=== PATIENT | male | born 1950 | race Caucasian/White ===

== ENCOUNTER 2017-03-06 03:42 | Emergency (ER) | payer MEDICARE, OTHER ==
[~2017-03-06] VITALS: Ht 175.3 cm; Wt 88.6 kg
[2017-03-06] MEDS ORDERED: ABAC1TAB3 PO (04:02)
[2017-03-06] MEDS ORDERED: BUSP10TA23 PO (04:05)
[2017-03-06] MEDS ORDERED: ASA3 PO (04:05)
[2017-03-06] MEDS ORDERED: ALPR0.25 PO (04:05)
[2017-03-06] MEDS ORDERED: CARB-101 PO (04:05)
[2017-03-06] MEDS ORDERED: ATOR20TA86 PO (04:05)
[2017-03-06] MEDS ORDERED: LINA145C PO (04:10)
[2017-03-06] MEDS ORDERED: DARU800T PO (04:10)
[2017-03-06] MEDS ORDERED: QUET25TA PO (04:10)
[2017-03-06] MEDS ORDERED: QUET100T PO (04:10)
[2017-03-06] MEDS ORDERED: FINA5TAB41 PO (04:10)
[2017-03-06] MEDS ORDERED: GABA-531 PO (04:10)
[2017-03-06] MEDS ORDERED: TRAZ-147 PO (04:10)
[2017-03-06] MEDS ORDERED: CELE100 PO (04:10)
[2017-03-06] MEDS ORDERED: DOXA2TAB PO (04:10)
[2017-03-06] MEDS ORDERED: RITO100T PO (04:10)
[2017-03-06] MEDS ORDERED: ESOM20CA31 PO (04:10)
[2017-03-06 04:19] LABS: BASOPHILS # (AUTO) 0.11 K/uL (0.00-0.20); BASOPHILS % (AUTO) 1.9 % (0.0-2.0); EOSINOPHILS # (AUTO) 0.06 K/uL (0.00-0.70); EOSINOPHILS % (AUTO) 0.95 % (1.0-6.0); HEMATOCRIT 40.2 % (41-53); HEMOGLOBIN 13.2 g/dL (13.5-17.5); LYMPHOCYTES # (AUTO) 1.5 K/uL (1.0-4.8); LYMPHOCYTES % (AUTO) 25.7 % (22.0-44.0); MEAN CORPUSCULAR HEMOGLOBIN 35.6 pg (26.0-34.0); MEAN CORPUSCULAR HGB CONC 32.9 G/dL (31.0-37.0); MEAN CORPUSCULAR VOLUME 108 fL (80-100); MONOCYTES # (AUTO) 0.5 K/uL (0.1-1.0); MONOCYTES % (AUTO) 8.5 % (2.0-9.0); NEUTROPHILS # (AUTO) 3.8 K/uL (1.8-7.7); PLATELET COUNT (AUTO) 145 K/uL (150-450); RED BLOOD CELL COUNT(AUTO) 3.72 MIL/uL (4.50-5.90); RED CELL DISTRIBUTION WIDTH 14.6 % (11.5-14.5)
[2017-03-06 04:26] LABS: ANION GAP 8 mmol/L (8-16); CALCIUM, TOTAL 8.8 mg/dL (8.8-10.5); CARBON DIOXIDE 28 mmol/L (22-29); CHLORIDE 106 mmol/L (98-107); GLOMERULAR FILTR. RATE CALC > 60 mL/min (>60); POTASSIUM 3.6 mmol/L (3.5-5.1); SODIUM SERUM 142 mmol/L (136-145); UREA NITROGEN, BLOOD 11 mg/dL (7-18)
[2017-03-06 04:33] LABS: ALANINE AMINOTRANSFERASE 50 U/L (12-78); ALBUMIN 3.4 g/dL (3.4-5.0); ASPARTATE AMINOTRANSFERASE 46 U/L (15-37); BILIRUBIN,TOTAL 0.8 mg/dL (0.1-1.0); TOTAL PROTEIN, SERUM 6.4 g/dL (6.4-8.2)
[2017-03-06] MEDS ORDERED: QUEtiapine FUMARATE 100 MG TABLET PO ONE (04:45)
[2017-03-06 06:25] VITALS: BP 146/79
== END 2017-03-06 06:36 | disposition home or self-care (01) ==
LOC: EMS 03:44
DX: G20 Parkinson's disease (principal); F02.80 Dementia in other diseases classified elsewhere, unspecified severity, without behavioral disturbance, psychotic disturbance, mood disturbance, and anxiety; F32.9 Major depressive disorder, single episode, unspecified; E78.00 Pure hypercholesterolemia, unspecified; F17.200 Nicotine dependence, unspecified, uncomplicated; Z79.82 Long term (current) use of aspirin; Z88.8 Allergy status to other drugs, medicaments and biological substances
CPT/HCPCS: 36415; 80053; 85025; 99285; G0480

== ENCOUNTER 2017-03-06 12:12 | Emergency (ER) | payer MEDICARE, OTHER ==
[~2017-03-06] VITALS: Ht 177.8 cm; Wt 68.2 kg
[~2017-03-06 12:12] MED LIST: ABAC1TAB3 PO; ALPR0.25 PO; ASA3 PO; ATOR20TA86 PO; BUSP10TA23 PO; CARB-101 PO; CELE100 PO; DARU800T PO; DOXA2TAB PO; ESOM20CA31 PO; FINA5TAB41 PO; GABA-531 PO; LINA145C PO; QUET100T PO; QUET25TA PO; RITO100T PO; TRAZ-147 PO
[2017-03-06 13:11] LABS: GLUCOSE,POINT OF CARE 86 MG/DL (70-110)
[2017-03-06 14:48] LABS: ADD UA MICROSCOPIC NO; APPEARANCE,URINE CLEAR (CLEAR); GLUCOSE, URINE (UA) NEGATIVE (NEGATIVE); KETONES,URINE 40 mg/dL (NEGATIVE); LEUKOCYTE ESTERASE ,URINE NEGATIVE (NEGATIVE); OCCULT BLOOD,URINE NEGATIVE (NEGATIVE); PROTEIN,URINE NEGATIVE (NEGATIVE)
[2017-03-06 16:21] LABS: BASOPHILS # (AUTO) 0.07 K/uL (0.00-0.20); BASOPHILS % (AUTO) 1.3 % (0.0-2.0); EOSINOPHILS # (AUTO) 0.07 K/uL (0.00-0.70); HEMATOCRIT 37.7 % (41-53); HEMOGLOBIN 12.8 g/dL (13.5-17.5); LYMPHOCYTES # (AUTO) 1.9 K/uL (1.0-4.8); LYMPHOCYTES % (AUTO) 33.4 % (22.0-44.0); MEAN CORPUSCULAR HEMOGLOBIN 35.8 pg (26.0-34.0); MEAN CORPUSCULAR HGB CONC 33.9 G/dL (31.0-37.0); MEAN CORPUSCULAR VOLUME 106 fL (80-100); MONOCYTES # (AUTO) 0.5 K/uL (0.1-1.0); NEUTROPHILS # (AUTO) 3.1 K/uL (1.8-7.7); PLATELET COUNT (AUTO) 137 K/uL (150-450); RED BLOOD CELL COUNT(AUTO) 3.57 MIL/uL (4.50-5.90); RED CELL DISTRIBUTION WIDTH 14.1 % (11.5-14.5); WHITE BLOOD COUNT (AUTO) 5.6 K/uL (4.5-11.0)
[2017-03-06 16:29] LABS: RBC MORPHOLOGY COMMENT ABNORMAL RBC MORPH
[2017-03-06] MEDS ORDERED: LORazepam 2 MG/ML VIAL IM ONE ×2 (16:30→21:15)
[2017-03-06 16:34] LABS: ANION GAP 11 mmol/L (8-16); CALCIUM, TOTAL 8.7 mg/dL (8.8-10.5); CARBON DIOXIDE 27 mmol/L (22-29); CHLORIDE 106 mmol/L (98-107); CREATININE 1.16 mg/dL (0.60-1.30); GLOMERULAR FILTR. RATE CALC > 60 mL/min (>60); POTASSIUM 3.8 mmol/L (3.5-5.1); SODIUM SERUM 144 mmol/L (136-145); UREA NITROGEN, BLOOD 12 mg/dL (7-18)
[2017-03-06 16:40] LABS: ALANINE AMINOTRANSFERASE 60 U/L (12-78); ALBUMIN 3.2 g/dL (3.4-5.0); ASPARTATE AMINOTRANSFERASE 61 U/L (15-37); BILIRUBIN,TOTAL 0.8 mg/dL (0.1-1.0); TOTAL PROTEIN, SERUM 6.1 g/dL (6.4-8.2)
[2017-03-06] MEDS ORDERED: DiphenhydrAMINE HCL 50 MG/ML VIAL IM ONE (19:15)
[2017-03-06 20:56] VITALS: BP 138/85
== END 2017-03-06 21:20 | disposition home or self-care (01) ==
LOC: EMS 12:14
DX: G20 Parkinson's disease (principal); F02.80 Dementia in other diseases classified elsewhere, unspecified severity, without behavioral disturbance, psychotic disturbance, mood disturbance, and anxiety; F41.9 Anxiety disorder, unspecified; F17.200 Nicotine dependence, unspecified, uncomplicated; E78.00 Pure hypercholesterolemia, unspecified; F32.9 Major depressive disorder, single episode, unspecified; Z79.82 Long term (current) use of aspirin; Z88.8 Allergy status to other drugs, medicaments and biological substances
CPT/HCPCS: 36415; 80053; 80307; 81003; 82140; 82962; 85025; 93005; 96372; 99285; G0480; J1200; J2060